=== PATIENT | female | born 1935 | race Two or more races ===

== ENCOUNTER 2018-08-24 11:06 | Emergency (ER) | payer MEDICARE, OTHER ==
[~2018-08-24] VITALS: Ht 160 cm; Wt 64.0 kg
[~2018-08-24 11:06] MED LIST: ASPIRIN81 MG ORAL; CALCIUM600 M1 PO; ENALAPRIL MALEAT5 MG ORAL; FOSAMAX70 MG ORAL; VITAMIN D1000 UNI1 ORAL
[2018-08-24 11:18] VITALS: BP 151/71
[2018-08-24 12:05] LABS: APPEARANCE,URINE CLEAR; BILIRUBIN, URINE NEGATIVE (NEGATIVE); COLOR,URINE PALE YELLOW; GLUCOSE, URINE (UA) NEGATIVE (NEGATIVE); KETONES,URINE 1+ (NEGATIVE); LEUKOCYTE ESTERASE ,URINE NEGATIVE (NEGATIVE); NITRITE,URINE NEGATIVE (NEGATIVE); PH,URINE 8 (4.5-8.0); PROTEIN,URINE 3+ (NEGATIVE); UROBILINOGEN,URINE NORMAL MG/DL (0.0-1.0)
--- NOTE | 2018-08-24 12:05 | Diagnostic Imaging Report ---
Indication: Dyspnea Comparison: 11/25/2013 A single view chest radiograph was obtained. Findings: The interstitium of the lung is prominent. This is likely chronic to a large extent. There could be superimposed pneumonitis or mild interstitial edema which is not excludable. The heart is enlarged. Surgical clips are seen in the right axilla. Bones are osteopenic. IMPRESSION: Chronic interstitial disease. Superimposed pneumonitis or CHF not excluded. Correlate clinically.
--- NOTE | 2018-08-24 12:05 | NUR ---
ED Nurse Note: pt from home osei ra 67 c/o weakness loss of appetite back pain sine yesterday. Pt has a rt mastectomy nothing on the rt. [facility] eval done pt hard stick [facility] aware sl established but unable to draw blood . urine sent to lab verbal order from [facility] for insertion of indwelling urinary cath. pt down to imaging now.
--- NOTE | 2018-08-24 12:13 | NUR ---
ED Nurse Note: lab at bedside for blood draw.
[2018-08-24 12:14] VITALS: BP 151/90
[2018-08-24 13:00] LABS: HEMATOCRIT 47.2 % (37.0-47.0); HEMOGLOBIN 15.9 G/DL (12.0-16.0); MEAN CORPUSCULAR VOLUME 89 FL (80-99); PLATELET COUNT 298 K/UL (150-450); RED BLOOD COUNT 5.29 M/UL (4.20-5.40); RED CELL DISTRIBUTION WIDTH 12.6 % (11.6-14.8); WHITE BLOOD COUNT 13.6 K/UL (4.8-10.8)
[2018-08-24 13:14] LABS: ANION GAP 10 mmol/L (5-15); BLOOD UREA NITROGEN 12 mg/dL (7-18); CARBON DIOXIDE 28 MMOL/L (21-32); CHLORIDE 89 MMOL/L (98-107); CREATININE 0.9 MG/DL (0.55-1.30); POTASSIUM 4.2 MMOL/L (3.5-5.1); SODIUM 127 MMOL/L (136-145)
[2018-08-24 13:29] LABS: ALANINE AMINOTRANSFERASE 21 U/L (12-78); ALBUMIN 4.3 G/DL (3.4-5.0); ALKALINE PHOSPHATASE 99 U/L (46-116); ASPARTATE AMINO TRANSFERASE 26 U/L (15-37); BILIRUBIN,DIRECT 0.2 MG/DL (0.0-0.3); BILIRUBIN,TOTAL 1.1 MG/DL (0.2-1.0); CREATINE KINASE 175 U/L (26-308)
--- NOTE | 2018-08-24 13:43 | Emergency Room Report ---
History of Present Illness General Chief Complaint: Generalized Weakness Source: Patient Present Illness HPI Patient presents with complaints of general weakness dizziness Family reports that over the past night patient has had decreased oral intake was not able to take her medications also had several hypertensive episodes Patient complains of diffuse abdominal pain as well Denies any chest pain denies any neck pain or photophobia Family feels that the patient has been deteriorating over the past several days increased weakness Allergies: Coded Allergies: No Known Allergies (Unverified , 11/25/13) Patient History Past Medical History: see triage record Pertinent Family History: none Reviewed Nursing Documentation: PMH: Agreed; PSxH: Agreed Nursing Documentation-PMH Hx Hypertension: Yes Hx Cancer: Yes - Right breast/ mastectomy Review of Systems All Other Systems: negative except mentioned in HPI Physical Exam Vital Signs Date Time Temp Pulse Resp B/P (MAP) Pulse Ox O2 Delivery O2 Flow Rate FiO2 08/24/18 11:12 97.9 89 16 151/71 (97) 97 Room Air Sp02 EP Interpretation: reviewed, normal General Appearance: well appearing, no apparent distress Head: normocephalic, atraumatic Eyes: bilateral eye PERRL, bilateral eye EOMI ENT: hearing grossly normal, TMs + canals normal, uvula midline, dry mucus membranes Neck: full range of motion, supple, no meningismus, no bony tend Respiratory: lungs clear, normal breath sounds, no rhonchi, no respiratory distress, no retraction, no accessory muscle use Cardiovascular #1: normal peripheral pulses, regular rate, rhythm, no edema, no gallop, no JVD, no murmur Gastrointestinal: normal bowel sounds, non tender - Subjectively points to the right lower quadrant, soft, no mass, no organomegaly, non-distended, no guarding , no hernia, no pulsatile mass, no rebound Genitourinary: no CVA tenderness Musculoskeletal: normal inspection Neurologic: oriented x3, responsive, welfare adviser III-XII nml as tested, motor strength/ tone normal, sensory intact Psychiatric: mood/affect normal Skin: other - Poor skin turgor Lymphatic: normal inspection, no adenopathy Medical Decision Making Diagnostic Impression: Primary Impression: Episode of generalized weakness Additional Impression: Hyponatremia ER Course Patient is a fairly complex patient with multiple differential to consideration including but not limited to cardiac cardiopulmonary and vascular emergencies Patient sodium level again is returned and low patient has normal saline provided CT imaging was obtained as well Patient resting comfortably blood pressure is improved requires transfer secondary to insurance request Labs Test 08/24/18 11:48 08/24/18 12:24 Urine Color Pale yellow Urine Appearance Clear Urine pH 8 (4.5-8.0) Urine Specific Mckinney 1.010 (1.005-1.035) Urine Protein 3+ (NEGATIVE) Urine Glucose (UA) Negative (NEGATIVE) Urine Ketones 1+ (NEGATIVE) Urine Blood 1+ (NEGATIVE) Urine Nitrite Negative (NEGATIVE) Urine Bilirubin Negative (NEGATIVE) Urine Urobilinogen Normal MG/DL (0.0-1.0) Urine Leukocyte Esterase Negative (NEGATIVE) Urine RBC 0-2 /HPF (0 - 2) Urine WBC 0 /HPF (0 - 2) Urine Squamous Epithelial Cells Occasional /LPF Urine Bacteria Occasional /HPF (NONE) White Blood Count 13.6 K/UL (4.8-10.8) Red Blood Count 5.29 M/UL (4.20-5.40) Hemoglobin 15.9 G/DL (12.0-16.0) Hematocrit 47.2 % (37.0-47.0) Mean Corpuscular Volume 89 FL (80-99) Mean Corpuscular Hemoglobin 30.0 PG (27.0-31.0) Mean Corpuscular Hemoglobin Concent 33.6 G/DL (32.0-36.0) Red Cell Distribution Width 12.6 % (11.6-14.8) Platelet Count 298 K/UL (150-450) Mean Platelet Volume 6.9 FL (6.5-10.1) Neutrophils (%) (Auto) % (45.0-75.0) Lymphocytes (%) (Auto) % (20.0-45.0) Monocytes (%) (Auto) % (1.0-10.0) Eosinophils (%) (Auto) % (0.0-3.0) Basophils (%) (Auto) % (0.0-2.0) Differential Total Cells Counted 100 Neutrophils % (Manual) 84 % (45-75) Lymphocytes % (Manual) 1 % (20-45) Monocytes % (Manual) 6 % (1-10) Eosinophils % (Manual) 0 % (0-3) Basophils % (Manual) 0 % (0-2) Band Neutrophils 9 % (0-8) Platelet Estimate Adequate Platelet Morphology Normal Polychromasia 1+ Newcomb Cells 2+ Sodium Level 127 MMOL/L (136-145) Potassium Level 4.2 MMOL/L (3.5-5.1) Chloride Level 89 MMOL/L (98-107) Carbon Dioxide Level 28 MMOL/L (21-32) Anion Gap 10 mmol/L (5-15) Blood Urea Nitrogen 12 mg/dL (7-18) Creatinine 0.9 MG/DL (0.55-1.30) Estimat Glomerular Filtration Rate mL/min (>60) Glucose Level 155 MG/DL (74-106) Lactic Acid Level 1.60 mmol/L (0.4-2.0) Calcium Level 10.0 MG/DL (8.5-10.1) Total Bilirubin 1.1 MG/DL (0.2-1.0) Direct Bilirubin 0.2 MG/DL (0.0-0.3) Aspartate Amino Transf (AST/SGOT) 26 U/L (15-37) Alanine Aminotransferase (ALT/SGPT) 21 U/L (12-78) Alkaline Phosphatase 99 U/L (46-116) Total Creatine Kinase 175 U/L (26-308) Creatine Kinase MB 1.0 NG/ML (0.0-3.6) Creatine Kinase MB Relative Index 0.5 Troponin I 0.000 ng/mL (0.000-0.056) Pro-B-Type Natriuretic Peptide 485 pg/mL (0-125) Total Protein 8.6 G/DL (6.4-8.2) Albumin 4.3 G/DL (3.4-5.0) Globulin 4.3 g/dL Albumin/Globulin Ratio 1.0 (1.0-2.7) Rhythm Strip Diag. Results EP Interpretation: yes Rate: 80 Rhythm: NSR, no PVC's, no ectopy Chest X-Ray Diagnostic Results Chest X-Ray Diagnostic Results : Chest X-Ray Ordered: Yes # of Views/Limited/Complete: 1 View Indication: Chest Pain EP Interpretation: Yes Interpretation: no consolidation, no effusion, no pneumothorax, other - Interstitial disease Impression: No acute disease Electronically Signed by: Gwen Santana, DO CT/MRI/US Diagnostic Results CT/MRI/US Diagnostic Results : Impression CT headImpression: No acute intracranial bleed, mass effect or edema. Moderate atrophy of the brain. Evidence of chronic small vessel disease involving white matter tracts. CT abdomen pelvisIMPRESSION: Distended gallbladder with the gallstone. Cholecystitis could be present. Correlate clinically. Mild basilar lung fibrosis. Small umbilical fat-containing hernia. Atherosclerotic disease Ramirez catheter Osteoporosis. Stigmata of prior breast carcinoma with right mastectomy and axillary node dissection. Last Vital Signs Date Time Temp Pulse Resp B/P (MAP) Pulse Ox O2 Delivery O2 Flow Rate FiO2 08/24/18 12:14 97.9 16 151/90 100 Room Air 08/24/18 11:18 89 Status: improved Disposition: XFER SHT-TRM HOSP Condition: Improved Referrals: [facility],REFERR[facility] (PCP) Gwen Santana DO Aug 24, 2018 13:43
--- NOTE | 2018-08-24 16:09 | NUR ---
ED Nurse Note: report called to [facility] . report given to Jb CHRISTY at [phone]
[2018-08-24 16:11] VITALS: BP 124/64
--- NOTE | 2018-08-24 16:15 | NUR ---
ED Nurse Note: Pt cleared by health care Provider for discharge. tx to [facility] report was given and explained to receiving RN. All medical deviecs such as ID band removed. Pt is AAO x4, ambulatory and left with all personal belongings via [facility] ambulance
--- NOTE | 2018-08-25 14:29 | Diagnostic Imaging Report ---
Indication: Abdominal pain Technique: Continuous helical transaxial imaging of the abdomen and pelvis was obtained from the lung bases to the pubic symphysis. No intravenous contrast was administered. Coronal 2-D reformats were also obtained. Automatic Exposure Control was utilized. Total Dose length Product (DLP): 752.[address] Dose Index Volume (CTDIvol): 14.79 mGy Comparison: none Findings: There is posterior basilar reticular densities with mild bronchiectasis. This may be due to atelectasis or scarring. Mastectomy noted on the right. Surgical clips in the right axilla noted. The gallbladder is distended. There is a gallstone suspected. This may be further evaluated with ultrasound. Cholecystitis is not excluded. Noncontrast evaluation of solid organs is grossly negative on this study. There is a small umbilical hernia. Mild calcification of aorta demonstrated. There is no nephrolithiasis or hydronephrosis appreciated. Bowel gas pattern appears nonobstructive. There is a Ramirez catheter present within a collapsed bladder. The bones are osteopenic with the patient's advanced age. IMPRESSION: Distended gallbladder with the gallstone. Cholecystitis could be present. Correlate clinically. Mild basilar lung fibrosis. Small umbilical fat-containing hernia. Atherosclerotic disease Ramirez catheter Osteoporosis. Stigmata of prior breast carcinoma with right mastectomy and axillary node dissection. The CT scanner at [facility] is accredited by the [employer] and the scans are performed using dose optimization techniques as appropriate to a performed exam including Automatic Exposure control.
--- NOTE | 2018-08-25 14:29 | Diagnostic Imaging Report ---
Indication: Headache Technique: Contiguous 5 mm thick transaxial imaging of the head obtained in a Siemens Sensation [address] scanner. Soft tissue and bone windows generated. Automatic Exposure Control was utilized. Total Dose length Product (DLP): 1217.[address] Dose Index Volume (CTDIvol): 70.38 mGy Comparison: 11/25/2013 Findings: There is moderate prominence of the ventricles, basal cisterns, and cerebral sulci consistent with atrophy. Moderate, nonspecific, white matter hypoattenuation is noted throughout the brain consistent with chronic small vessel disease. There is no midline shift, edema, acute hemorrhage, mass effect, or abnormal extra-axial fluid collections. Bones are unremarkable. Impression: No acute intracranial bleed, mass effect or edema. Moderate atrophy of the brain. Evidence of chronic small vessel disease involving white matter tracts. The CT scanner at [facility] is accredited by the [employer] and the scans are performed using dose optimization techniques as appropriate to a performed exam including Automatic Exposure control.
== END 2018-08-24 15:30 ==
LOC: EDBD 11:06 → EDUNIT# 11:06 → EMR 11:21
DX: R53.1 Weakness (principal); E87.1 Hypo-osmolality and hyponatremia; I10 Essential (primary) hypertension; Z85.3 Personal history of malignant neoplasm of breast; Z90.11 Acquired absence of right breast and nipple; M81.0 Age-related osteoporosis without current pathological fracture; I70.90 Unspecified atherosclerosis; K42.9 Umbilical hernia without obstruction or gangrene; J84.10 Pulmonary fibrosis, unspecified
CPT/HCPCS: 36415; 51702; 70450; 71045; 74176; 80053; 81003; 82248; 82550; 82553; 83605; 83880; 84484; 85007; 85025; 87040; 93005; 99284

== ENCOUNTER 2018-10-24 22:45 | Emergency (ER) | payer MEDICARE, OTHER ==
[~2018-10-24] VITALS: Ht 157.5 cm; Wt 59.0 kg
[2018-10-24 23:15] VITALS: BP 137/63
--- NOTE | 2018-10-24 23:15 | NUR ---
ED Nurse Note: Recieved pt on ankushsherrell awake, alert and oriented x 4, pt here with c/o needing b/p meds, pt just left [facility] where she was worked up for CP and sob, pt states she needs her b/p meds and they would not given her prescription, pt does not know what her meds are, pt with daughter at bedside, pt is ambulatory, denies cp at thsi time or any pain, pt govend and palced on monitoring, pt refuses for iv line palcement at this time.
--- NOTE | 2018-10-24 23:22 | Emergency Room Report ---
History of Present Illness General Chief Complaint: Chest Pain Source: Patient, Family Member Present Illness HPI Is an 83-year-old female who had a history of hypertension but her doctor took her off of blood pressure medication. She presents with chief complaint of high blood pressure and chest pressure. Is been ongoing for 4 days. She was at [facility] 2 days ago for the same thing. Lab work was unremarkable and she was discharged home. She denies any blood pressure medication. She says she felt chest pressure and short of breath. Family took her blood pressure is 192/80 at home. She came here to be evaluated. Patient denies any nausea vomiting. Short of breath is better. She says she felt like she cannot catch her breath. She has some mild chest pressure. Again this been constant. No fever chills. No nausea no vomiting. No diarrhea. Patient walked in here without any difficulty. Allergies: Coded Allergies: No Known Allergies (Unverified , 11/25/13) Patient History Past Medical History: see triage record, old chart reviewed, HTN Past Surgical History: other Pertinent Family History: none Social History: Denies: smoking Now: No Immunizations: other Reviewed Nursing Documentation: PMH: Agreed; PSxH: Agreed Nursing Documentation-PMH Hx Cardiac Problems: No - hypothyroidism Hx Hypertension: Yes Hx Cancer: Yes - Right breast/ mastectomy Review of Systems Eye: Denies: eye pain, blurred vision ENT: Denies: ear pain, nose congestion, throat swelling Respiratory: Reports: shortness of breath; Denies: cough Cardiovascular: Reports: chest pain; Denies: palpitations Gastrointestinal: Denies: abdominal pain, diarrhea, nausea, vomiting Musculoskeletal: Denies: back pain, joint pain Skin: Denies: rash Neurological: Denies: headache, numbness Endocrine: Denies: increased thirst, increased urine Hematologic/Lymphatic: Denies: easy bruising All Other Systems: negative except mentioned in HPI Physical Exam Vital Signs Date Time Temp Pulse Resp B/P (MAP) Pulse Ox O2 Delivery O2 Flow Rate FiO2 10/24/18 22:53 97.7 68 18 154/68 (96) 98 Room Air vitals with htn Sp02 EP Interpretation: reviewed, normal General Appearance: well appearing, no apparent distress, alert Head: normocephalic, atraumatic Eyes: bilateral eye PERRL, bilateral eye EOMI ENT: hearing grossly normal, normal pharynx Neck: full range of motion, supple, no meningismus Respiratory: chest non-tender, lungs clear, normal breath sounds Cardiovascular #1: regular rate, rhythm, no murmur Gastrointestinal: normal bowel sounds, non tender, no mass, no organomegaly, no bruit, non-distended Musculoskeletal: back normal, gait/station normal, normal range of motion Psychiatric: mood/affect normal Medical Decision Making Diagnostic Impression: Primary Impression: Chest pain Qualified Codes: R07.9 - Chest pain, unspecified Additional Impression: Hypertension Qualified Codes: I10 - Essential (primary) hypertension ER Course Patient with atypical chest pain. Been ongoing for 4 days with negative troponin. EKG unremarkable. No evidence of ACS, PE, dissection to name a few. Most likely has anxiety component. Will discharge home with a low-dose high blood pressure medication. EKG Diagnostic Results Rate: normal Rhythm: NSR ST Segments: no acute changes Rhythm Strip Diag. Results EP Interpretation: yes Rate: 68 Rhythm: NSR, no PVC's, no ectopy Last Vital Signs Date Time Temp Pulse Resp B/P (MAP) Pulse Ox O2 Delivery O2 Flow Rate FiO2 10/24/18 22:53 97.7 68 18 154/68 (96) 98 Room Air Status: improved Disposition: HOME, SELF-CARE Condition: Stable Scripts Amlodipine Besylate (Norvasc) 2.5 Mg Tablet 2.5 MG ORAL DAILY, #30 TAB Prov: Ronny Dong MD 10/25/18 Patient Instructions: Nonspecific Chest Pain Additional Instructions: Follow-up with your doctor in 7 days. Return if symptoms worsen. Ronny Dong MD Oct 24, 2018 23:22
[2018-10-25 01:00] VITALS: BP 126/71
[2018-10-25] MEDS ORDERED: NORVASC2.5 MG ORAL (01:06)
--- NOTE | 2018-10-25 01:15 | NUR ---
ER DISCHARGE NOTE: Patient is cleared to be discharged per ERMD, pt is aox4, on room air, with stable vital signs. pt was given dc and prescription instructions, pt was able to verbalize understanding, pt id band removed without complications. pt is able to ambulate with steady gait. pt took all belongings.
[2018-10-25 01:25] VITALS: BP 137/63
--- NOTE | 2018-10-26 13:06 | Cardiology Report ---
APPROVED REPORT EKG Measurement Heart [id number] Sinus rhythm with 1st degree AV block Otherwise normal ECG
== END 2018-10-25 01:25 | disposition home or self-care (01) ==
LOC: EMR 23:07
DX: R07.9 Chest pain, unspecified (principal); I10 Essential (primary) hypertension; E03.9 Hypothyroidism, unspecified; Z85.3 Personal history of malignant neoplasm of breast; Z90.11 Acquired absence of right breast and nipple
CPT/HCPCS: 84484; 93005; 99283